=== PATIENT | female | born 1980 | race African-American/Black ===

== ENCOUNTER 2017-06-19 16:29 | Emergency (ER) | payer MEDICAID, OTHER ==
--- NOTE | 2017-06-19 17:15 | RAD ---
TWO VIEWS OF THE CHEST: DATE: 06/19/17. COMPARISON: None. HISTORY: Coughing, wheezing, congestion. FINDINGS: No pneumothorax, pleural fluid, focal consolidation, or alveolar edema. Heart and mediastinum contou rs unremarkable. IMPRESSION: No acute findings present. POS: [id number]
== END 2017-06-19 18:59 | disposition home or self-care (01) ==
LOC: ERS 16:29
DX: J20.9 Acute bronchitis, unspecified (principal); I10 Essential (primary) hypertension; E66.9 Obesity, unspecified; F17.210 Nicotine dependence, cigarettes, uncomplicated; Z79.899 Other long term (current) drug therapy
CPT/HCPCS: 71020